=== PATIENT | female | born 1975 | race Caucasian/White ===

== ENCOUNTER 2016-09-01 21:10 | Emergency (ER) | payer MEDICAID ==
[~2016-09-01] VITALS: Ht 165.1 cm; Wt 78.0 kg
[~2016-09-01 21:10] MED LIST: PNV1TABL11 PO
[2016-09-01] MEDS ORDERED: ALBUTEROL SULFATE 2.5 MG/3 ML ONE (21:59)
[2016-09-01] MEDS ORDERED: ALBUTEROL SULFATE 2.5 MG/3 ML NPPB ONE (22:00)
[2016-09-01 23:02] VITALS: BP 125/80
== END 2016-09-01 23:17 | disposition home or self-care (01) ==
LOC: ED 23:11
DX: J45.41 Moderate persistent asthma with (acute) exacerbation (principal); Z90.89 Acquired absence of other organs
CPT/HCPCS: 93005; 94640; 99283; J7512; J7613

== ENCOUNTER 2016-11-09 00:29 | Emergency (ER) | payer MEDICAID ==
[~2016-11-09] VITALS: Ht 165.1 cm; Wt 77.8 kg
[2016-11-09 02:43] VITALS: BP 129/71
== END 2016-11-09 02:45 | disposition home or self-care (01) ==
LOC: ED 02:20
DX: J45.31 Mild persistent asthma with (acute) exacerbation (principal); N30.00 Acute cystitis without hematuria
CPT/HCPCS: 71010; 81001; 87077; 87086; 87186; 93005; 99285

== ENCOUNTER 2017-08-18 16:27 | Emergency (ER) | payer MEDICAID ==
[~2017-08-18] VITALS: Ht 162.6 cm; Wt 82.2 kg
[2017-08-18 16:29] VITALS: BP 119/77
== END 2017-08-18 17:32 | disposition home or self-care (01) ==
LOC: ED 17:26
DX: J06.9 Acute upper respiratory infection, unspecified (principal); J45.909 Unspecified asthma, uncomplicated
CPT/HCPCS: 71045; 93005; 99284

== ENCOUNTER 2017-10-10 15:04 | Emergency (ER) | payer MEDICAID ==
[~2017-10-10] VITALS: Ht 165.1 cm; Wt 82.0 kg
[2017-10-10 15:09] VITALS: BP 116/83
== END 2017-10-10 16:01 | disposition home or self-care (01) ==
LOC: ED 15:30
DX: L02.414 Cutaneous abscess of left upper limb (principal); L03.114 Cellulitis of left upper limb; J45.909 Unspecified asthma, uncomplicated; F17.210 Nicotine dependence, cigarettes, uncomplicated
CPT/HCPCS: 99283

== ENCOUNTER 2018-01-31 17:26 | Inpatient (IN) | payer MEDICAID ==
[~2018-01-31] VITALS: Ht 165.1 cm; Wt 80.1 kg
[2018-01-31] MEDS ORDERED: SODIUM CHLORIDE FLUSH 10ML SYR IVF ONE (18:00)
[2018-01-31] MEDS ORDERED: ALBUTEROL SULFATE 2.5 MG/3 ML NPPB ONE (18:00)
[2018-01-31] MEDS ORDERED: ALBUTEROL/IPRATROPIUM 2.5MG/0.5MG, 3 ML NPPB ONE (18:00)
[2018-01-31] MEDS ORDERED: ALBUTEROL/IPRATROPIUM 2.5MG/0.5MG, 3 ML ONE (18:29)
[2018-01-31] MEDS ORDERED: ALBUTEROL 0.5%, 20ML NPPBCONT ONE (18:30)
[2018-01-31] MEDS ORDERED: ALBUTEROL 0.5%, 20ML ONE (18:37)
[2018-01-31] MEDS ORDERED: MAGNESIUM SULFATE PMX 2GM/50ML 50 ML IV ONE (20:30)
[2018-01-31 20:32] LABS: BASOPHILS # (AUTO) 0.04 x10^3/uL (0-0.1); BASOPHILS % (AUTO) 0 % (0-1); EOSINOPHILS # (AUTO) 1.18 x10^3/uL (0-0.4); EOSINOPHILS % (AUTO) 11 % (1-7); LYMPHOCYTES # (AUTO) 1.61 x10^3/uL (1-3.4); LYMPHOCYTES % (AUTO) 14 % (22-44); MD NO; MEAN CORPUSCULAR HGB CONC 33.6 g/dL (32.4-35.8); MEAN CORPUSCULAR VOLUME 92.2 fL (80-100); MEAN PLATELET VOLUME 8.7 fL (7.4-10.4); MONOCYTES # (AUTO) 0.24 x10^3/uL (0.2-0.8); MONOCYTES % (AUTO) 2 % (2-9); NEUTROPHILS % (AUTO) 73 % (42-75); PLATELET COUNT 295 x10^3/uL (130-400); RED BLOOD COUNT 4.37 x10^6/uL (3.82-5.3); RED CELL DISTRIBUTION WIDTH 13.5 % (9.6-15.2)
[2018-01-31 20:41] LABS: ANION GAP 5 mmol/L (5-15); CALCIUM 8.3 mg/dL (8.5-10.1); CHLORIDE 112 mmol/L (98-107); CREATININE 1.07 mg/dL (0.55-1.02)
[2018-01-31] MEDS ORDERED: ALBU1.25 NEB (20:55)
[2018-01-31 21:00] VITALS: BP 134/84
[2018-01-31] MEDS ORDERED: ALBUTEROL/IPRATROPIUM 2.5MG/0.5MG, 3 ML HHN SCH (21:30)
[2018-01-31] MEDS: ENOXAPARIN 40 MG/0.4 ML SQ SCH (22:51)
[2018-01-31] MEDS: methylPREDNISolone SOD SUCC 40 MG/ML IVPush SCH (22:51)
[2018-02-01] MEDS: ALBUTEROL/IPRATROPIUM 2.5MG/0.5MG, 3 ML NPPB SCH ×6 (02:00→23:00)
[2018-02-01 03:42] VITALS: BP 133/77
[2018-02-01 07:47] LABS: ALBUMIN 3.9 g/dL (3.4-5.0); ANION GAP 8 mmol/L (5-15); CHLORIDE 111 mmol/L (98-107); CREATININE 0.84 mg/dL (0.55-1.02)
[2018-02-01] MEDS: methylPREDNISolone SOD SUCC 40 MG/ML IVPush SCH ×2 (08:22→17:29)
[2018-02-01] MEDS: AZITHROMYCIN 250 MG TABLET PO SCH (08:25)
[2018-02-01 08:50] VITALS: BP 125/61
[2018-02-01] MEDS ORDERED: GUAIFENESIN 100 MG/5 ML, 10ML UDC PO PRN (10:00)
[2018-02-01 14:00] VITALS: BP 130/74
[2018-02-01] MEDS: FLUTICASONE NASAL SPRAY 16GM NAS SCH ×2 (17:29→19:10)
[2018-02-01 19:52] VITALS: BP 124/65
[2018-02-01] MEDS: ENOXAPARIN 40 MG/0.4 ML SQ SCH (22:42)
[2018-02-02] MEDS: methylPREDNISolone SOD SUCC 40 MG/ML IVPush SCH (01:04)
[2018-02-02 02:41] VITALS: BP 145/72
[2018-02-02] MEDS: ALBUTEROL/IPRATROPIUM 2.5MG/0.5MG, 3 ML NPPB SCH ×3 (03:00→11:20)
[2018-02-02 04:44] LABS: MEAN CORPUSCULAR HGB CONC 33.5 g/dL (32.4-35.8); MEAN CORPUSCULAR VOLUME 92.7 fL (80-100); PLATELET COUNT 286 x10^3/uL (130-400); RED BLOOD COUNT 4.57 x10^6/uL (3.82-5.3)
[2018-02-02 04:53] LABS: ANION GAP 8 mmol/L (5-15); CALCIUM 9.1 mg/dL (8.5-10.1); CHLORIDE 110 mmol/L (98-107)
[2018-02-02 05:04] LABS: CREATININE 0.85 mg/dL (0.55-1.02); THYROID STIMULATING HORMONE 0.072 mIU/L (0.358-3.740)
[2018-02-02 05:56] LABS: BASOPHILS # (AUTO) 0.02 x10^3/uL (0-0.1); BASOPHILS % (AUTO) 0 % (0-1); EOSINOPHILS % (AUTO) 0 % (1-7); LYMPHOCYTES % (AUTO) 4 % (22-44); MD SCAN; MONOCYTES # (AUTO) 0.13 x10^3/uL (0.2-0.8); MONOCYTES % (AUTO) 1 % (2-9); NEUTROPHILS # (AUTO) 10.95 x10^3/uL (1.8-6.8); NEUTROPHILS % (AUTO) 95 % (42-75)
[2018-02-02 06:55] VITALS: BP 124/66
[2018-02-02] MEDS: AZITHROMYCIN 250 MG TABLET PO SCH (09:22)
[2018-02-02] MEDS: FLUTICASONE NASAL SPRAY 16GM NAS SCH (09:23)
[2018-02-02] MEDS ORDERED: ALBU18HF INH (12:03)
[2018-02-02] MEDS ORDERED: METH4TAB2 PO (12:03)
[2018-02-02] MEDS ORDERED: ALBU1.25 NEB (12:03)
[2018-02-02] MEDS ORDERED: AZIT250T89 PO (12:03)
[2018-02-02] MEDS ORDERED: GUAI100L11 PO (12:03)
== END 2018-02-02 14:25 | disposition home or self-care (01) | DRG 682 ==
LOC: ED 20:18 → EDIP 20:49 → 4EST 21:06 → DCLOUNGE 02-02 14:05
PROVIDERS: ADMIT Internal Medicine; ATTEND Internal Medicine
DX: N17.9 Acute kidney failure, unspecified (principal); J96.01 Acute respiratory failure with hypoxia; J45.902 Unspecified asthma with status asthmaticus; Z87.891 Personal history of nicotine dependence; Z87.01 Personal history of pneumonia (recurrent); Z87.442 Personal history of urinary calculi; Z90.49 Acquired absence of other specified parts of digestive tract
CPT/HCPCS: 36415; 99291; J7620; 71045; 80048; 82040; 84439; 84443; 85025; 87070; 87205; 93005; 94640; 94644; G0378; J1650; J2920; J3475; J7512

== ENCOUNTER 2018-06-12 11:40 | Emergency (ER) | payer MEDICAID ==
[~2018-06-12] VITALS: Ht 165.1 cm; Wt 89.1 kg
[~2018-06-12 11:40] MED LIST changes: +ALBU1.25 NEB; +ALBU18HF INH; +AZIT250T89 PO; +GUAI100L11 PO; +METH4TAB2 PO
[2018-06-12 11:54] VITALS: BP 123/83
[2018-06-12] MEDS ORDERED: ALBUTEROL SULFATE 2.5 MG/3 ML ONE (12:24)
== END 2018-06-12 12:48 | disposition home or self-care (01) ==
LOC: ED 12:42
DX: J45.41 Moderate persistent asthma with (acute) exacerbation (principal); B34.9 Viral infection, unspecified; Z90.89 Acquired absence of other organs; Z87.01 Personal history of pneumonia (recurrent)
CPT/HCPCS: 71046; 94640; 99283; J7512

== ENCOUNTER 2019-02-12 12:10 | Emergency (ER) | payer MEDICAID ==
[~2019-02-12] VITALS: Ht 165.1 cm; Wt 96.0 kg
[~2019-02-12 12:10] MED LIST changes: +PRED10TA PO
[2019-02-12 12:15] VITALS: BP 131/67
[2019-02-12] MEDS ORDERED: ACETAMINOPHEN 500 MG TABLET ONE (12:56)
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
[2019-02-12] MEDS ORDERED: ACETAMINOPHEN 500 MG TABLET PO ONE (13:00)
--- NOTE | 2019-02-12 13:36 | NUR ---
DISCHARGE INSTRUCTIONS REVIEWED
== END 2019-02-12 13:44 | disposition home or self-care (01) ==
LOC: ED 13:42
DX: S63.521A Sprain of radiocarpal joint of right wrist, initial encounter (principal); J45.909 Unspecified asthma, uncomplicated; W01.0XXA Fall on same level from slipping, tripping and stumbling without subsequent striking against object, initial encounter; Y93.89 Activity, other specified; Y92.009 Unspecified place in unspecified non-institutional (private) residence as the place of occurrence of the external cause; Y99.8 Other external cause status
CPT/HCPCS: 29260; 99283

== ENCOUNTER 2019-12-21 09:07 | Emergency (ER) | payer MEDICAID ==
[~2019-12-21] VITALS: Ht 165.1 cm; Wt 96.2 kg
[2019-12-21] MEDS ORDERED: ALBUTEROL/IPRATROPIUM 2.5MG/0.5MG, 3 ML ONE (09:56)
[2019-12-21] MEDS ORDERED: ALBUTEROL/IPRATROPIUM 2.5MG/0.5MG, 3 ML NPPB ONE (10:00)
[2019-12-21 10:01] LABS: MICROSCOPIC INDICATED
[2019-12-21 10:13] LABS: BASOPHILS # (AUTO) 0.05 x10^3/uL (0-0.1); BASOPHILS % (AUTO) 1 % (0-1); EOSINOPHILS % (AUTO) 12 % (1-7); LYMPHOCYTES # (AUTO) 1.52 x10^3/uL (1-3.4); LYMPHOCYTES % (AUTO) 19 % (22-44); MD NO; MEAN CORPUSCULAR HEMOGLOBIN 30.2 pg (27.0-34.8); MEAN CORPUSCULAR HGB CONC 32.8 g/dL (32.4-35.8); MEAN PLATELET VOLUME 8.4 fL (7.4-10.4); MONOCYTES # (AUTO) 0.61 x10^3/uL (0.2-0.8); MONOCYTES % (AUTO) 8 % (2-9); NEUTROPHILS # (AUTO) 4.99 x10^3/uL (1.8-6.8); NEUTROPHILS % (AUTO) 61 % (42-75); PLATELET COUNT 347 x10^3/uL (130-400); RED BLOOD COUNT 4.55 x10^6/uL (3.82-5.3)
--- NOTE | 2019-12-21 10:15 | NUR ---
TASK RN: Ultrasound in room performing exam
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
[2019-12-21 10:23] LABS: ALBUMIN 3.3 g/dL (3.4-5.0); ANION GAP 7 mmol/L (5-15); CALCIUM 8.8 mg/dL (8.5-10.1); CHLORIDE 110 mmol/L (98-107); CREATININE 0.84 mg/dL (0.55-1.02)
[2019-12-21 12:08] VITALS: BP 122/76
== END 2019-12-21 12:10 | disposition home or self-care (01) ==
LOC: ED 11:33
DX: O03.9 Complete or unspecified spontaneous abortion without complication (principal); Z20.828 Contact with and (suspected) exposure to other viral communicable diseases; J45.31 Mild persistent asthma with (acute) exacerbation; J06.9 Acute upper respiratory infection, unspecified; R05 Cough; R07.89 Other chest pain; R06.00 Dyspnea, unspecified
CPT/HCPCS: 36415; 71045; 76801; 80048; 81001; 82040; 84702; 85025; 87086; 87635; 94640; 99285; J7512

== ENCOUNTER 2020-02-26 23:55 | Emergency (ER) | payer MEDICAID ==
[~2020-02-26] VITALS: Ht 165.1 cm; Wt 100.7 kg
[2020-02-27 00:02] VITALS: BP 129/77
[2020-02-27] MEDS ORDERED: ALBUTEROL/IPRATROPIUM 2.5MG/0.5MG, 3 ML NPPB ONE (01:00)
[2020-02-27] MEDS ORDERED: ALBUTEROL/IPRATROPIUM 2.5MG/0.5MG, 3 ML ONE (03:15)
--- NOTE | 2020-02-27 03:29 | NUR ---
BREATHING TX AT THIS TIME
--- NOTE | 2020-02-27 03:51 | NUR ---
PT NOW SLEEPING ON [employer] NO NEEDS AT THIS TIME
--- NOTE | 2020-02-27 04:04 | NUR ---
Patient/Caregiver given discharge instructions and they have confirmed that they understand the instructions. Patient ambulatory with steady gait.
== END 2020-02-27 04:06 | disposition home or self-care (01) ==
LOC: ED 02-27 03:50
DX: J45.31 Mild persistent asthma with (acute) exacerbation (principal); Z76.0 Encounter for issue of repeat prescription
CPT/HCPCS: 71045; 94640; 99283; J7512; 99406